=== PATIENT | female | born 1955 | race Caucasian/White ===

== ENCOUNTER 2024-03-26 09:15 | Outpatient (CLI) | payer MEDICARE ==
[2024-03-26 10:29] LABS: #Eosinophils 0.07 10x3/uL (0.0-0.5); #Monocytes 0.47 10x3/uL (0.0-1.1); #Neutrophils 4.47 10x3/uL (1.5-8.4); %Eosinophils 1.1 % (0.0-6.0); %Lymphocytes 20.2 % (18.0-47.0); %Monocytes 7.5 % (0.0-10.0); %Neutrophils 70.9 % (40.0-75.0); Hematocrit 41.5 % (34.9-44.5); Hemoglobin 13.5 g/dL (12.0-15.5); Mean Corpuscular HGB CONC 32.5 g/dL (32.0-36.0); Mean Corpuscular Hemoglobin 30.8 pg (27.0-33.0); Mean Corpuscular Volume 94.7 fL (81.6-98.3); Platelet Count 175 10x3/uL (150-450); RBC Distribution Width 12.6 % (11.5-14.5); Red Blood Cell (RBC) Count 4.38 10x6/uL (3.90-5.03); White Blood Cell (WBC) Count 6.3 10x3/uL (3.5-10.5)
[2024-03-26 10:43] LABS: Anion Gap 12 mmol/L (10-20); BUN (Urea Nitrogen) 22 mg/dL (9.8-20.1); Calc. Creatinine Clearance 0 mL/min (70-130); Calcium 8.9 mg/dL (7.8-10.44); Carbon Dioxide 29 mmol/L (23-31); Chloride 104 mmol/L (98-107); Estimated GFR 95; Glucose 74 mg/dL (80-115); Potassium 4.4 mmol/L (3.5-5.1); Sodium 141 mmol/L (136-145)
== END 2024-03-26 09:16 | disposition home or self-care (01) ==
LOC: CSHLAB 09:15
PROVIDERS: ATTEND Specialist
DX: Z01.818 Encounter for other preprocedural examination (principal); M79.3 Panniculitis, unspecified; R94.31 Abnormal electrocardiogram [ECG] [EKG]
CPT/HCPCS: 71046; 80048; 85025; 93005; 93010

== ENCOUNTER 2024-04-03 09:55 | Day surgery (SDC) | payer MEDICARE ==
[2024-03-26 09:52] VITALS: BMI 31.6
[2024-04-03] MEDS ORDERED: Ketorolac Tromethamine 30 MG (1 mL) VIAL ONE (10:32)
[2024-04-03] MEDS ORDERED: Acetaminophen 500 MG TAB ONE (10:32)
[2024-04-03] MEDS ORDERED: Lidocaine 2% PF 5 ML VIAL ONE (13:02)
[2024-04-03] MEDS ORDERED: PROPOFOL 40 ML ONE (13:02)
[2024-04-03] MEDS ORDERED: SUGAMMADEX SODIUM 200 MG/2 ML VIAL ONE (13:02)
[2024-04-03] MEDS ORDERED: Fentanyl 250 MCG/5 ML VIAL ONE (13:02)
[2024-04-03] MEDS ORDERED: KETAMINE 100 MG/ML (5ML VIAL) ONE (13:02)
[2024-04-03] MEDS ORDERED: Dexamethasone 4 mg/ml Vial ONE (13:02)
[2024-04-03] MEDS ORDERED: Bupivacaine/Epinephrine 0.25% 30 ML VIAL ONE (13:21)
[2024-04-03] MEDS ORDERED: CEFAZOLIN 1 GM VIAL ONE (13:26)
[2024-04-03] MEDS ORDERED: ePHEDrine Sulfate 50 MG/10 ML VIAL ONE ×2 (13:55→15:46)
[2024-04-03] MEDS ORDERED: Midazolam HCl 2 mg/2 ml Vial ONE (14:06)
[2024-04-03] MEDS ORDERED: fentaNYL 50 mcg/mL 1 mL Vial ONE (15:32)
[2024-04-03] MEDS ORDERED: Sevoflurane 250 ML INH ANEST BOTTLE ONE (15:45)
[2024-04-03] MEDS ORDERED: HYDROcodone/Acetaminophen 5/325 mg Tablet ONE (16:57)
== END 2024-04-03 17:28 | disposition home or self-care (01) ==
LOC: CSHSDC 09:55
PROVIDERS: ATTEND Specialist
PROC: 0HB7XZZ Excision of Abdomen Skin, External Approach (ICD-10-PCS; principal; 2024-04-03)
PROC: 0WUF0JZ Supplement Abdominal Wall with Synthetic Substitute, Open Approach (ICD-10-PCS; 2024-04-03)
DX: M79.3 Panniculitis, unspecified (principal); Z88.2 Allergy status to sulfonamides; Z88.0 Allergy status to penicillin; I10 Essential (primary) hypertension; E66.9 Obesity, unspecified; F32.A Depression, unspecified; Z68.30 Body mass index [BMI] 30.0-30.9, adult; Z90.710 Acquired absence of both cervix and uterus; Z79.899 Other long term (current) drug therapy
CPT/HCPCS: 15830; 49591; A6223; A6258; J0690; J1100; J1885; J2250; J2704; J3010

== ENCOUNTER 2024-05-04 08:48 | Outpatient (CLI) | payer MEDICARE | END 2024-05-04 08:49 | disposition home or self-care (01) | LOC: CSHWCC 08:48 | PROVIDERS: ATTEND Nurse Practitioner Family | DX: S31.109D Unspecified open wound of abdominal wall, unspecified quadrant without penetration into peritoneal cavity, subsequent encounter (principal); T81.328D Disruption or dehiscence of closure of other specified internal operation (surgical) wound, subsequent encounter | CPT/HCPCS: 11042; G0463; 99213 ==

== ENCOUNTER 2024-05-11 10:35 | Outpatient (CLI) | payer MEDICARE | END 2024-05-11 10:36 | disposition home or self-care (01) | LOC: CSHWCC 10:35 | PROVIDERS: ATTEND Nurse Practitioner Family | DX: S31.109A Unspecified open wound of abdominal wall, unspecified quadrant without penetration into peritoneal cavity, initial encounter (principal); T81.328A Disruption or dehiscence of closure of other specified internal operation (surgical) wound, initial encounter | CPT/HCPCS: 11042; 97605 ==

== ENCOUNTER 2024-05-21 09:19 | Outpatient (CLI) | payer MEDICARE | END 2024-05-21 09:20 | disposition home or self-care (01) | LOC: CSHWCC 09:19 | PROVIDERS: ATTEND Nurse Practitioner Family | DX: S31.109D Unspecified open wound of abdominal wall, unspecified quadrant without penetration into peritoneal cavity, subsequent encounter (principal); T81.328D Disruption or dehiscence of closure of other specified internal operation (surgical) wound, subsequent encounter | CPT/HCPCS: 11042; 97605 ==

== ENCOUNTER 2024-05-25 09:22 | Outpatient (CLI) | payer MEDICARE | END 2024-05-25 09:23 | disposition home or self-care (01) | LOC: CSHWCC 09:22 | PROVIDERS: ATTEND Nurse Practitioner Family | DX: S31.109D Unspecified open wound of abdominal wall, unspecified quadrant without penetration into peritoneal cavity, subsequent encounter (principal); T81.328D Disruption or dehiscence of closure of other specified internal operation (surgical) wound, subsequent encounter | CPT/HCPCS: 11042; 11045; 97605 ==